=== PATIENT | male | born 1975 | race Hispanic/Latino ===

== ENCOUNTER 2018-11-20 07:19 | Emergency (ER) | payer SELFPAY ==
[2018-11-20] MEDS ORDERED: Ibuprofen 800 MG TAB ONE (07:39)
--- NOTE | 2018-11-20 07:45 | RAD ---
XR Chest Pa Lat STANDARD HISTORY: Fall on toilet with chest pain COMPARISON: None. FINDINGS: Heart size and mediastinum are within normal limits. The lungs are clear of any infiltrativ e process. No pneumothorax. No rib fractures identified. No pleural effusions. IMPRESSION: Unremarkable chest.
== END 2018-11-20 08:02 | disposition home or self-care (01) ==
LOC: SCSER 07:19
DX: S20.212A Contusion of left front wall of thorax, initial encounter (principal); F17.210 Nicotine dependence, cigarettes, uncomplicated; W01.0XXA Fall on same level from slipping, tripping and stumbling without subsequent striking against object, initial encounter
CPT/HCPCS: 71046